=== PATIENT | female | born 1995 | race African-American/Black ===

== ENCOUNTER 2019-07-28 15:58 | Emergency (ER) | payer BC ==
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
--- OUTSIDE RECORDS SUMMARY | 2019-07-28 16:02 | XMS REPORT | Summary of Care ---
:1995 Author Organization [facility] Address [address] [place] [address]- Encounter [facility]_van(FIN) [id number] Date(s): 02/07/19 - 02/07/[address] [phone] Encounter Diagnosis Acute knee pain (Discharge Diagnosis) - 02/07/19 Discharge Disposition: Home or Self Care Attending Physician: Anuja Castro MD Vital Signs Most recent to oldest [Reference Range]: 1 2 Height 165.1 cm (02/07/19 12:06 PM) Temperature Oral [96.4-99.1 DegF] 98.4 DegF (02/07/19 12:06 PM) Blood Pressure [90-140/60-90 mmHg] 123/87 mmHg 122/80 mmHg (02/07/19 2:36 PM) (02/07/19 12:06 PM) Respiratory Rate [14-20 BRMIN] 16 BRMIN 16 BRMIN (02/07/19 2:36 PM) (02/07/19 12:06 PM) Peripheral Pulse Rate [60-100 bpm] 87 bpm 112 bpm (02/07/19 2:36 PM) *HI* (02/07/19 12:06 PM) Weight 92.273 kg (02/07/19 12:06 PM) Body Mass Index 33.85 m2 (02/07/19 12:06 PM) Problem List No data available for this section Allergies, Adverse Reactions, Alerts Substance Reaction Severity Status NKDA Active Medications ibuprofen 800 mg, 1 tab, Route: PO, Drug form: TAB, ONCE, Dosing Weight 92.273, kg, Priority: STAT, Start date: 02/07/19 12:15:00 CDT, Stop date: 02/07/19 12:15:00 CDT Notes: (Same as: Motrin)"Do Not Crush" Take with food. Start Date: 02/07/19 Stop Date: 02/07/19 Status: Completedibuprofen 800 mg oral tablet 800 mg=1 tab, PO, Q8H, PRN Pain, Take with food, X 10 day, # 30 tab, 0 Refill(s) Start Date: 02/07/19 Stop Date: 02/17/19 Status: OrderedTylenol with Codeine #3 oral tablet 1 tab, PO, Q6H, PRN Pain, X 3 day, # 12 tab, 0 Refill(s) Start Date: 02/07/19 Stop Date: 02/10/19 Status: Ordered Results No data available for this section Immunizations No data available for this section Procedures No data available for this section Social History Social History Type Response Smoking Status Never smoker; Exposure to Tobacco Smoke None; Cigarette Smoking Last 365 Days No; Reg Smoking Cessation Counseling No entered on: 02/07/19 Assessment and Plan No data available for this section
--- OUTSIDE RECORDS SUMMARY | 2019-07-28 16:02 | XMS REPORT | CCD ---
:1995 Author Organization [facility] Care Team Providers Name Role Phone Didier Pedersen Consulting Provider Allergies, Adverse Reactions, Alerts Substance Reaction Status NKDA Active Vital Signs Most recent to oldest [Reference 1 2 Range]: Height 162.56 cm (07/26/2013 19:45:00) Systolic Blood Pressure [90-138 mmHg] 113 mmHg 112 mmHg (07/26/2013 22:00:00) (07/26/2013 19:45:00) Diastolic Blood Pressure [45-84 mmHg] 68 mmHg 68 mmHg (07/26/2013 22:00:00) (07/26/2013 19:45:00) Respiratory Rate [14-20 BRMIN] 20 BRMIN 18 BRMIN (07/26/2013 22:00:00) (07/26/2013 19:45:00) Peripheral Pulse Rate [55-90 bpm] 100 bpm 100 bpm *HI* *HI* (07/26/2013 22:00:00) (07/26/2013 19:45:00) Weight 61.364 kg (07/26/2013 19:45:00)
--- OUTSIDE RECORDS SUMMARY | 2019-07-28 16:02 | XMS REPORT ---
:1995 [facility] Address [address] [place] [address] Care Team Providers Name Role Phone Unavailable Unavailable Unavailable Problems This patient has no known problems. Allergies, Adverse Reactions, Alerts This patient has no known allergies or adverse reactions. Medications This patient has no known medications.
--- OUTSIDE RECORDS SUMMARY | 2019-07-28 16:02 | XMS REPORT | Summary of Care ---
:1995 Author Organization [facility] Primary Care [facility] Address [address], [address] [place] [address]- Encounter HQ Flex_van(FIN) [id number] Date(s): 04/21/19 - 04/21/19 [facility] [address] [place] [address]- [phone] Discharge Disposition: Home or Self Care Attending Physician: Gisela Rayo MD Vital Signs Most recent to oldest [Reference Range]: 1 Height 167.64 cm (04/21/19 7:48 PM) Blood Pressure [90-140/60-90 mmHg] 135/92 mmHg (04/21/19 7:48 PM) Peripheral Pulse Rate [60-100 bpm] 118 bpm *HI* (04/21/19 7:48 PM) Weight 95.455 kg (04/21/19 7:48 PM) Body Mass Index 33.97 m2 (04/21/19 7:48 PM) Problem List Condition Effective Dates Status Health Status Informant Simple obesity(Confirmed) Active Allergies, Adverse Reactions, Alerts No Known Allergies Medications aspirin 325 mg tablet 325 mg, Route: PO, ONCE, Dosing Weight 92.273, kg, Start date: 04/21/19 20:00: 00 CDT, Stop date: 04/21/19 20:00:00 CDT Start Date: 04/21/19 Stop Date: 04/21/19 Status: Completednitroglycerin 0.4 mg sublingual tablet 0.4 mg, Route: SL, ONCE, Dosing Weight 92.273, kg, Start date: 04/21/19 20:00: 00 CDT, Stop date: 04/21/19 20:00:00 CDT Start Date: 04/21/19 Stop Date: 04/21/19 Status: Completed Results No data available for this section Immunizations No data available for this section Procedures No data available for this section Social History Social History Type Response Smoking Status Never smoker; Exposure to Tobacco Smoke None; Cigarette Smoking Last 365 Days No; Reg Smoking Cessation Counseling No entered on: 04/21/19 Assessment and Plan No data available for this section
--- OUTSIDE RECORDS SUMMARY | 2019-07-28 16:02 | XMS REPORT ---
:1995 Author Organization e[employer] Care Team Providers Name Role Phone Deven Loco Provider Role Unavailable Allergies, Adverse Reactions, Alerts Substance Reaction Event Type N.K.D.A. Info Not Available Non Drug Allergy Encounters Encounter Location Date [facility] , depo Deven Loco MD, [facility] February 08, 2015 Repeat pap and depo-provera injection Deven Loco MD, [facility] Dec 29, 2015 Problems Problem Type Condition ICD-9 Code Onset Dates Condition Status Assessment Encounter for surveillance of Z30.42 Active injectable contraceptive Assessment Screening for malignant neoplasm Z12.4 Active of cervix Medications Medication Code System Code Instructions Start Date End Date Status Dosage Depo-Provera MEDISPAN [id number] 150 MG/ML Active 1 ml 6-30 Intramuscular Social History Social History Element Qualifiers Date Reported Tobacco Use: . Smoking Status: Never Smoker Dec 29, 2015 Use of recreational / street drugs? . Answer: No Dec 29, 2015 Do you drink alcohol? . Status: No Dec 29, 2015 Vital Signs Date/Time: Dec 29, 2015 Weight 161 lbs Height 65 in Blood Pressure Diastolic 80 mm Hg Blood Pressure Systolic 132 mm Hg Results HCG URINE Summary Purpose eClinicalWorks Submission
--- OUTSIDE RECORDS SUMMARY | 2019-07-28 16:02 | XMS REPORT | Summary of Care ---
:1995 Author Organization [facility] Address [address] [place], [place] [address]- Encounter HQ Josentr_van(FIN) [id number] Date(s): 05/23/17 - 05/23/17 [facility] [address] [place] [address]- [phone] Discharge Diagnosis: Knee pain Discharge Disposition: Home or Self Care Attending Physician: Soy Murphy MD Vital Signs Most recent to oldest [Reference Range]: 1 2 Height 167.64 cm (05/23/17 1:52 PM) Temperature Oral [96.4-99.1 DegF] 97.1 DegF (05/23/17 1:52 PM) Blood Pressure [90-140/60-90 mmHg] 129/69 mmHg 137/72 mmHg (05/23/17 4:00 PM) (05/23/17 1:52 PM) Respiratory Rate [14-20 BRMIN] 16 BRMIN 16 BRMIN (05/23/17 4:00 PM) (05/23/17 1:52 PM) Peripheral Pulse Rate [60-100 bpm] 95 bpm 102 bpm (05/23/17 4:00 PM) *HI* (05/23/17 1:52 PM) Weight 79.574 kg (05/23/17 1:52 PM) Body Mass Index 28.31 m2 (05/23/17 1:52 PM) Problem List No data available for this section Allergies, Adverse Reactions, Alerts Substance Reaction Severity Status NKDA Active Medications No data available for this section Results No data available for this section Immunizations No data available for this section Procedures No data available for this section Social History Social History Type Response Smoking Status Never smoker; Exposure to Tobacco Smoke None; Cigarette Smoking Last 365 Days No; Reg Smoking Cessation Counseling No Assessment and Plan No data available for this section
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
--- OUTSIDE RECORDS SUMMARY | 2019-07-28 16:02 | XMS REPORT | Summary of Care ---
:1995 Author Organization [facility] Address [address] [place], [place] [address]- Encounter HQ Marie(BRENNEN) [id number] Date(s): 09/28/15 - 09/28/15 [facility] [address] [place] [address]- Discharge Diagnosis: Acute UTI Discharge Disposition: Home Attending Physician: Wesley Pacheco MD Vital Signs Most recent to oldest [Reference Range]: 1 Height 167.64 cm (09/28/15 9:26 AM) Temperature Oral [96.4-99.1 DegF] 98.3 DegF (09/28/15 9:26 AM) Blood Pressure [90-140/60-90 mmHg] 116/85 mmHg (09/28/15 9:26 AM) Respiratory Rate [14-20 BRMIN] 18 BRMIN (09/28/15 9:26 AM) Peripheral Pulse Rate [60-100 bpm] 78 bpm (09/28/15 9:26 AM) Weight 71.42 kg (09/28/15 9:26 AM) Body Mass Index 25.41 m2 (09/28/15 9:26 AM) Problem List No data available for this section Allergies, Adverse Reactions, Alerts Substance Reaction Severity Status NKDA Active Medications Cipro 500 mg oral tablet 500 mg=1 tab, PO, Q12H, X 7 day, # 14 tab, 0 Refill(s) Start Date: 09/28/15 Stop Date: 10/05/15 Status: OrderedketOROLAC 30 mg, Route: IVP, Drug form: INJ, ONCE, Dosing Weight 71.42, kg, Priority: STAT , Start date: 09/28/15 10:51:00, Stop date: 09/28/15 10:51:00 Start Date: 09/28/15 Stop Date: 09/28/15 Status: Completedmorphine Sulfate 2 mg, 1 mL, Route: IVP, Drug form: INJ, ONCE, Dosing Weight 71.42, kg, Priority : STAT, Start date: 09/28/15 10:20:00, Stop date: 09/28/15 10:20:00 Notes: (Same as:MORPhine Sulfate) Start Date: 09/28/15 Stop Date: 09/28/15 Status: CompletedRocephin 1 gm, Route: IVPB, Drug form: PDR/INJ, ONCE, Dosing Weight 71.42, kg, Priority: STAT, Start date: 09/28/15 10:50:00, Stop date: 09/28/15 10:50:00 Start Date: 09/28/15 Stop Date: 09/28/15 Status: CompletedZofran 4 mg, 2 mL, Route: IVP, Drug form: INJ, ONCE, Dosing Weight 71.42, kg, Priority : STAT, Start date: 09/28/15 10:20:00, Stop date: 09/28/15 10:20:00 Notes: (Same as: Zofran) MEDICATION WASTE Product Size: 4 mgProduct Wasted: ___ mg Start Date: 09/28/15 Stop Date: 09/28/15 Status: CompletedZofran ODT 4 mg oral tablet, disintegrating 4 mg=1 tab, PO, TID, Dissolve tab under tongue, X 2 day, # 6 tab, 0 Refill(s) Start Date: 09/28/15 Stop Date: 09/30/15 Status: Completed Results ELECTROLYTES Most recent to oldest [Reference Range]: 1 Sodium Lvl [135-145 mEq/L] 141 mEq/L (09/28/15 9:51 AM) Potassium Lvl [3.5-5.1 mEq/L] 4.0 mEq/L (09/28/15 9:51 AM) Chloride Lvl [95-109 mEq/L] 109 mEq/L (09/28/15 9:51 AM) CO2 [24-32 mEq/L] 26 mEq/L (09/28/15 9:51 AM) AGAP [10.0-20.0 mEq/L] 10.0 mEq/L (09/28/15 9:51 AM) CHEM PANEL Most recent to oldest [Reference Range]: 1 Creatinine Lvl [0.50-1.40 mg/dL] 0.78 mg/dL (09/28/15 9:51 AM) eGFR 128 mL/min/1.73m2 1 *NA* (09/28/15 9:51 AM) BUN [7-22 mg/dL] 8 mg/dL (09/28/15 9:51 AM) B/C Ratio [6-25] 10 (09/28/15 9:51 AM) Glucose Lvl [70-99 mg/dL] 108 mg/dL *HI* (09/28/15 9:51 AM) Total Protein [6.4-8.4 g/dL] 7.6 g/dL (09/28/15 9:51 AM) Albumin Lvl [3.5-5.0 g/dL] 3.5 g/dL (09/28/15 9:51 AM) Globulin [2.0-4.0 g/dL] 4.1 g/dL *HI* (09/28/15 9:51 AM) A/G Ratio [0.7-1.6] 0.9 (09/28/15 9:51 AM) Calcium Lvl [8.5-10.5 mg/dL] 9.3 mg/dL (09/28/15 9:51 AM) ALT [0-65 unit/L] 18 unit/L (09/28/15 9:51 AM) AST [0-37 unit/L] 13 unit/L (09/28/15 9:51 AM) Alk Phos [39-136 unit/L] 95 unit/L (09/28/15 9:51 AM) Bili Total [0.2-1.3 mg/dL] 0.9 mg/dL (09/28/15 9:51 AM) Lipase Lvl [73-393 unit/L] 95 unit/L (09/28/15 9:51 AM) 1Result Comment: The eGFR is calculated using the CKD-EPI formula. In most young , healthy individualsthe eGFR will be >90 mL/min/1.73m2. The eGFR declines with age. An eGFR of 60-89 may be normal in some populations, particularly the elderly, for whom the CKD-EPI formula has not been extensively validated. Use of the eGFR is not recommended in the following populations: Individuals with unstable creatinine concentrations, including patients and those with serious co-morbid conditions. Patients with extremes in muscle mass or diet. The data above are obtained from the National Kidney Disease Education Program ( NKDEP) which additionally recommends that when the eGFR is used in patients with extremes of body mass index for purposesof drug dosing, the eGFR should be multiplied by the estimated BMI.ENDOCRINOLOGY Most recent to oldest [Reference Range]: 1 S Preg [Negative] Negative *NA* (09/28/15 9:51 AM) URINE AND STOOL Most recent to oldest [Reference Range]: 1 UA Turbidity [Clear] Cloudy *ABN* (09/28/15 9:51 AM) UA Color [Yellow] Yellow *NA* (09/28/15 9:51 AM) UA pH [5.0-8.0] 6.0 (09/28/15 9:51 AM) UA Spec Grav [<=1.030] 1.020 (09/28/15 9:51 AM) UA Glucose [Negative] Negative (09/28/15 9:51 AM) UA Blood [Negative] Large *ABN* (09/28/15 9:51 AM) UA Ketones [Negative] Negative *NA* (09/28/15 9:51 AM) UA Protein [Negative mg/dL] 30 mg/dL *ABN* (09/28/15 9:51 AM) UA Urobilinogen [0.1-1.0 EU/dL] 0.2 EU/dL (09/28/15 9:51 AM) UA Bili [Negative] Negative *NA* (09/28/15 9:51 AM) UA Leuk Est [Negative] Moderate *ABN* (09/28/15 9:51 AM) UA Nitrite [Negative] Negative (09/28/15 9:51 AM) UA WBC [None Seen /HPF] 51-100 /HPF *ABN* (09/28/15 9:51 AM) UA RBC [0-2 /HPF] 51-100 /HPF *ABN* (09/28/15 9:51 AM) UA Bacteria [None Seen /HPF] Many /HPF (09/28/15 9:51 AM) UA Sq Epi [Few /LPF] Moderate /LPF *ABN* (09/28/15 9:51 AM) HEMATOLOGY Most recent to oldest [Reference Range]: 1 WBC [3.7-10.4 K/CMM] 7.8 K/CMM (09/28/15 9:51 AM) RBC [4.20-5.40 M/CMM] 4.58 M/CMM (09/28/15 9:51 AM) Hgb [12.0-16.0 g/dL] 12.7 g/dL (09/28/15 9:51 AM) Hct [36.0-48.0 %] 39.1 % (09/28/15 9:51 AM) MCV [80.0-98.0 fL] 85.4 fL (09/28/15 9:51 AM) MCH [27.0-31.0 pg] 27.7 pg (09/28/15 9:51 AM) MCHC [32.0-36.0 g/dL] 32.4 g/dL (09/28/15 9:51 AM) RDW [11.5-14.5 %] 12.0 % (09/28/15 9:51 AM) Platelet [133-450 K/CMM] 242 K/CMM (09/28/15 9:51 AM) MPV [7.4-10.4 fL] 7.1 fL *LOW* (09/28/15 9:51 AM) Segs [45.0-75.0 %] 64.9 % (09/28/15 9:51 AM) Lymphocytes [20.0-40.0 %] 23.3 % (09/28/15 9:51 AM) Monocytes [2.0-12.0 %] 8.7 % (09/28/15 9:51 AM) Eosinophils [0.0-4.0 %] 2.6 % (09/28/15 9:51 AM) Basophils [0.0-1.0 %] 0.5 % (09/28/15 9:51 AM) Segs-Bands # [1.5-8.1 K/CMM] 5.1 K/CMM (09/28/15 9:51 AM) Lymphocytes # [1.0-5.5 K/CMM] 1.8 K/CMM (09/28/15 9:51 AM) Monocytes # [0.0-0.8 K/CMM] 0.7 K/CMM (09/28/15 9:51 AM) Eosinophils # [0.0-0.5 K/CMM] 0.2 K/CMM (09/28/15 9:51 AM) Immunizations No data available for this section Procedures No data available for this section Social History Social History Type Response Smoking Status Never smoker; Lives with someone who smokes; Cigarette Smoking Last 365 Days Yes; Reg Smoking Cessation Counseling No Assessment and Plan No data available for this section
--- OUTSIDE RECORDS SUMMARY | 2019-07-28 16:02 | XMS REPORT | Summary of Care ---
:1995 Author Encounter KHADAR Salazar(BRENNEN) [id number] Date(s): 03/27/14 - 03/28/14 [facility] [address] Discharge Diagnosis: Strep throat Discharge Disposition: Home Physician Attending: Raul Rendon MD Reason for Visit TONCILES SWOLLEN Vital Signs Most recent to oldest [Reference Range]: 1 2 Temperature Oral [96.8-99.7 DegF] 99.7 DegF 100.5 DegF *HI* *HI* (03/28/14 3:42 AM) (03/27/14 11:35 PM) Systolic Blood Pressure [90-138 mmHg] 108 mmHg 128 mmHg (03/28/14 3:42 AM) (03/27/14 11:35 PM) Diastolic Blood Pressure [45-84 mmHg] 57 mmHg 80 mmHg (03/28/14 3:42 AM) (03/27/14 11:35 PM) Respiratory Rate [14-20 BRMIN] 20 BRMIN 20 BRMIN (03/28/14 3:42 AM) (03/27/14 11:35 PM) Peripheral Pulse Rate [55-90 bpm] 76 bpm 100 bpm (03/28/14 3:42 AM) *HI* (03/27/14 11:35 PM) Weight 63.636 kg (03/27/14 11:35 PM) Problem List No data available for this section Allergies, Adverse Reactions, Alerts Substance Reaction Severity Status NKDA Active Medications dexamethasone 8 mg, 2 tab, Route: PO, Drug form: TAB, ONCE, Dosing Weight 63.636, kg, Priority : STAT, Start date: 03/28/14 2:39:00, Stop date: 03/28/14 2:39:00 Notes: Give with food.(Same As: Decadron) Start Date: 03/28/14 Stop Date: 03/28/14 Status: Completedibuprofen 600 mg, 1 tab, Route: PO, Drug form: TAB, ONCE, Dosing Weight 63.636, kg, Priority: STAT, Start date: 03/28/14 2:38:00, Stop date: 03/28/14 2:38:00 Notes: (Same as: Motrin)"Do Not Crush" Take with food. Start Date: 03/28/14 Stop Date: 03/28/14 Status: Completedpenicillin V potassium 500 mg oral tablet 500 mg=1 tab, PO, Q6H, # 40 tab, 0 Refill(s) Start Date: 03/28/14 Stop Date: 04/07/14 Status: Ordered Results RAPID Most recent to oldest [Reference Range]: 1 Grp A Strep Scr [Negative] Negative (03/27/14 11:37 PM) Medications Administered During Your Visit No data available for this section Immunizations No data available for this section Social History Social History Type Response
[2019-07-28 17:06] LABS: Urine Blood NEGATIVE (NEG); Urine Glucose NEGATIVE (NEG); Urine Protein NEGATIVE (NEG); Urine Specific Gravity >1.030 (1.005-1.030)
--- NOTE | 2019-07-28 17:22 | ER ---
Nurse's Notes [facility] Name: Yuly Rivera Age: 23 yrs Sex: Female : 1995 Arrival Date: 07/28/2019 Time: 15:59 Bed 16 Private MD: Diagnosis: state, incidental Presentation: 07/28 16:22 Presenting complaint: N/V, headache, body aches, chills, x 2 days. Transition of care: hb patient was not received from another setting of care. Onset of symptoms was July 27, 2019. Risk Assessment: Do you want to hurt yourself or someone else? Patient reports no desire to harm self or others. Initial Sepsis Screen: Does the patient meet any 2 criteria? No. Patient's initial sepsis screen is negative. Does the patient have a suspected source of infection? No. Patient's initial sepsis screen is negative. Care prior to arrival: None. 16:22 Method Of Arrival: Ambulatory 16:22 Acuity: ZAIDA 4 hb Historical: - Allergies: 16:24 No Known Allergies; hb - Home Meds: 16:24 None [Active]; hb - PMHx: 16:24 None; hb - PSHx: 16:24 None; hb - Immunization history:: Adult Immunizations up to date. - Social history:: Smoking status: Patient/guardian denies using tobacco. - Ebola Screening: : No symptoms or risks identified at this time. Screenin:00 Abuse screen: Denies threats or abuse. Denies injuries from another. Nutritional ph screening: No deficits noted. Tuberculosis screening: No symptoms or risk factors identified. Fall Risk None identified. Assessment: 17:00 General: Appears in no apparent distress. comfortable, well groomed, Behavior is calm, ph cooperative, appropriate for age. Pain: Complains of pain in head. Neuro: Level of Consciousness is awake, alert, obeys commands, Oriented to person, place, time, situation, Reports headache Denies weakness dizziness. Cardiovascular: Capillary refill < 3 seconds in bilateral fingers Patient's skin is warm and dry. Respiratory: Airway is patent Respiratory effort is even, unlabored. GI: Abdomen is round non-distended, Reports nausea, vomiting, Patient currently denies abdominal pain, diarrhea. Derm: Skin is intact, Skin is pink, warm \T\ dry. Musculoskeletal: Circulation, motion, and sensation intact. Range of motion: intact in all extremities. 18:00 Reassessment: Pt not in room for d/c, checked in restrooms as well, pt left before ph signing d/c papers, no prescriptions written. Vital Signs: 16:24 Pulse 108; Resp 16; Temp 98.4; Pulse Ox 100% on R/A; Weight 93.44 kg; Height 5 ft. 7 hb in. (170.18 cm); Pain 2/10; 16:24 Body Mass Index 32.26 (93.44 kg, 170.18 cm) hb ED Course: 15:59 Patient arrived in ED. mr 16:21 [facility]. kb 16:21 Tenzin Chua MD is Attending Physician. kb 16:24 Triage completed. hb 16:25 Arm band placed on. hb 16:28 Candace Jarvis, RN is Primary Nurse. ph 17:00 Patient has correct armband on for positive identification. Bed in low position. Call ph light in reach. Side rails up X 1. Pulse ox on. NIBP on. 18:00 No provider procedures requiring assistance completed. Patient did not have IV access ph during this emergency room visit. Administered Medications: No medications were administered Outcome: 17:20 Discharge ordered by . kb 18:04 Patient left the ED. ph 18:04 Discharged to home ambulatory. ph 18:04 Condition: good Signatures: Essie Jha FNP-C FNP-Ckb Livia Brand mr Candace Jarvis, RN RN ph Tiara Kennedy, GEORGINA RN
--- NOTE | 2019-07-28 17:23 | EDPHYS ---
Physician Documentation [facility] Name: Yuly Rivera Age: 23 yrs Sex: Female : 1995 Arrival Date: 07/28/2019 Time: 15:59 Bed 16 Private MD: ED Physician Tenzin Chua HPI: 07/28 16:38 This 23 yrs old Black Female presents to ER via Ambulatory with complaints of Vomiting. kb 16:38 The patient presents to the emergency department with nausea, vomiting. Onset: The kb symptoms/episode began/occurred 2 day(s) ago. Possible causes: unknown. The symptoms are aggravated by nothing. The symptoms are alleviated by nothing. Associated signs and symptoms: Pertinent positives: nausea, vomiting, chills, body aches. Severity of symptoms: At their worst the symptoms were mild moderate in the emergency department the symptoms are unchanged. The patient has not experienced similar symptoms in the past. The patient has not recently seen a physician. Pt reports chills, body aches, headache, nausea and vomiting for 2 days. . Historical: - Allergies: 16:24 No Known Allergies; hb - Home Meds: 16:24 None [Active]; hb - PMHx: 16:24 None; hb - PSHx: 16:24 None; hb - Immunization history:: Adult Immunizations up to date. - Social history:: Smoking status: Patient/guardian denies using tobacco. - Ebola Screening: : No symptoms or risks identified at this time. ROS: 16:38 ENT: Negative for injury, pain, and discharge, Neck: Negative for injury, pain, and kb swelling, Cardiovascular: Negative for chest pain, palpitations, and edema, Respiratory: Negative for shortness of breath, cough, wheezing, and pleuritic chest pain, Back: Negative for injury and pain, : Negative for injury, bleeding, discharge, and swelling, MS/Extremity: Negative for injury and deformity, Skin: Negative for injury, rash, and discoloration, Neuro: Negative for headache, weakness, numbness, tingling, and seizure. 16:38 Constitutional: Positive for body aches, chills, fatigue, fever, malaise, Negative for poor PO intake, weight loss. 16:38 Abdomen/GI: Positive for nausea and vomiting. Exam: 16:37 Constitutional: This is a well developed, well nourished patient who is awake, alert, kb and in no acute distress. Head/Face: Normocephalic, atraumatic. Neck: Trachea midline, no thyromegaly or masses palpated, and no cervical lymphadenopathy. Supple, full range of motion without nuchal rigidity, or vertebral point tenderness. No Meningismus. Chest/axilla: Normal chest wall appearance and motion. Nontender with no deformity. No lesions are appreciated. Cardiovascular: Regular rate and rhythm with a normal S1 and S2. No gallops, murmurs, or rubs. Normal PMI, no JVD. No pulse deficits. Respiratory: Lungs have equal breath sounds bilaterally, clear to auscultation and percussion. No rales, rhonchi or wheezes noted. No increased work of breathing, no retractions or nasal flaring. Abdomen/GI: Soft, non-tender, with normal bowel sounds. No distension or tympany. No guarding or rebound. No evidence of tenderness throughout. Skin: Warm, dry with normal turgor. Normal color with no rashes, no lesions, and no evidence of cellulitis. MS/ Extremity: Pulses equal, no cyanosis. Neurovascular intact. Full, normal range of motion. Neuro: Awake and alert, GCS 15, oriented to person, place, time, and situation. Cranial nerves II-XII grossly intact. Motor strength 5/5 in all extremities. Sensory grossly intact. Cerebellar exam normal. Normal gait. 16:37 ENT: External ear(s): are unremarkable, Ear canal(s): are normal, TM's: are normal, Nose: is normal, Mouth: is normal, Posterior pharynx: Airway: normal, Tonsils: bilaterally enlarged, with erythema, Uvula: normal, midline, swelling, that is moderate, erythema, that is mild. Vital Signs: 16:24 Pulse 108; Resp 16; Temp 98.4; Pulse Ox 100% on R/A; Weight 93.44 kg; Height 5 ft. 7 hb in. (170.18 cm); Pain 2/10; 16:24 Body Mass Index 32.26 (93.44 kg, 170.18 cm) hb MDM: 16:25 Patient medically screened. kb 16:37 Data reviewed: vital signs, nurses notes. Data interpreted: Pulse oximetry: on room air kb is 100 %. Interpretation: normal. 16:51 ED course: Pt tolerating PO intake at this time without medication. Educated on kb positive test. LMP 06/23/19. Pt reports she is not on control. 17:20 Counseling: I had a detailed discussion with the patient and/or guardian regarding: the kb historical points, exam findings, and any diagnostic results supporting the discharge/admit diagnosis, lab results, the need for outpatient follow up, a family practitioner, to return to the emergency department if symptoms worsen or persist or if there are any questions or concerns that arise at home. 07/28 16:28 Order name: Flu; Complete Time: 17:16 kb 07/28 16:28 Order name: Strep; Complete Time: 17:04 kb 07/28 17:04 Order name: Urine Dipstick--Ancillary (enter results) bd 07/28 17:04 Order name: Urine --Ancillary (enter results) bd 07/28 17:07 Order name: Urine --Ancillary; Complete Time: 17:07 EDWY 07/28 17:07 Order name: Urine Dipstick-Ancillary; Complete Time: 17:07 EDWY 07/28 17:13 Order name: Throat Culture EDWY Administered Medications: No medications were administered Disposition: 07/29 07:04 Co-signature as Attending Physician, Tenzin Chua MD I agree with the assessment and kdr plan of care. Disposition: 07/28/19 17:20 Discharged to Home. Impression: state, incidental. - Condition is Stable. - Discharge Instructions: Morning Sickness, [id number], First Trimester of , [id number]. - Medication Reconciliation Form, Thank You Letter, Antibiotic Education, Prescription Opioid Use form. - Follow up: Emergency Department; When: As needed; Reason: Worsening of condition. Follow up: Private Physician; When: 2 - 3 days; Reason: Recheck today's complaints, Continuance of care, Re-evaluation by your physician. Signatures: Dispatcher [employer] EDWY Essie Jha, WELD TECHNICIAN-C SYBIL-Tenzin Jeter MD MD [facility] Candace Jarvis RN RN Tiara Kennedy RN RN Corrections: (The following items were deleted from the chart) 07/28 18:04 17:20 07/28/2019 17:20 Discharged to Home. Impression: state, incidental. ph Condition is Stable. Discharge Instructions: Morning Sickness, [id number], First Trimester of , Yees-vs-Rnlr. Forms are Medication Reconciliation Form, Thank You Letter, Antibiotic Education, Prescription Opioid Use. Follow up: Emergency Department; When: As needed; Reason: Worsening of condition. Follow up: Private Physician; When: 2 - 3 days; Reason: Recheck today's complaints, Continuance of care, Re-evaluation by your physician. kb
[2019-07-28 18:29] VITALS: TEMP 98.4; O2SAT 100
== END 2019-07-28 18:04 | disposition home or self-care (01) ==
LOC: ER 15:58
DX: Z33.1 Pregnant state, incidental (principal)
CPT/HCPCS: 81003; 81025; 87070; 87081; 87804; 99282

== ENCOUNTER 2019-11-19 13:32 | Emergency (ER) | payer BC ==
--- OUTSIDE RECORDS SUMMARY | 2019-11-19 13:35 | XMS REPORT ---
:1995 [facility] [address] [place] [address] Care Team Providers Name Role Phone Unavailable Unavailable Unavailable Problems This patient has no known problems. Allergies, Adverse Reactions, Alerts This patient has no known allergies or adverse reactions. Medications This patient has no known medications.
--- NOTE | 2019-11-19 14:30 | ER ---
Nurse's Notes [facility] Name: Yuly Rivera Age: 24 yrs Sex: Female : 1995 Arrival Date: 11/19/2019 Time: 13:37 Bed 12 Private MD: Diagnosis: Sprain of foot Presentation: 11/19 13:50 Presenting complaint: Patient states: "I twisted my ankle coming down the stairs aa5 yesterday". pt denies fall. Pt c/o pain to left ankle. Reports being 21 weeks . Reports normal movement, denies vaginal bleeding. 13:50 Transition of care: patient was not received from another setting of care. Onset of aa5 symptoms was November 2019. Risk Assessment: Do you want to hurt yourself or someone else? Patient reports no desire to harm self or others. Initial Sepsis Screen: Does the patient meet any 2 criteria? No. Patient's initial sepsis screen is negative. Does the patient have a suspected source of infection? No. Patient's initial sepsis screen is negative. Care prior to arrival: None. 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 - Social history:: Smoking status: Patient/guardian denies using tobacco. - Ebola Screening: : No symptoms or risks identified at this time. Screenin:00 Abuse screen: Denies threats or abuse. Nutritional screening: No deficits noted. aa5 Tuberculosis screening: No symptoms or risk factors identified. Fall Risk None identified. Assessment: 13:50 General: Appears uncomfortable, Behavior is calm, cooperative. Pain: Complains of pain aa5 in dorsum of left foot Pain currently is 5 out of 10 on a pain scale. Aggravated by weight bearing. Neuro: Level of Consciousness is awake, alert, obeys commands, Oriented to person, place, time, situation. Cardiovascular: Patient's skin is warm and dry. Respiratory: Airway is patent Respiratory effort is even, unlabored, Respiratory pattern is regular, symmetrical. GI: No signs and/or symptoms were reported involving the gastrointestinal system. : No signs and/or symptoms were reported regarding the genitourinary system. EENT: No signs and/or symptoms were reported regarding the EENT system. Derm: Skin is dry, Skin is normal, Skin temperature is warm. Musculoskeletal: Range of motion: intact in all extremities. Vital Signs: 14:01 BP 113 / 69; Pulse 83; Resp 18 S; Temp 98.0(TE); Pulse Ox 100% on R/A; Weight 100.7 kg aa5 (R); Height 5 ft. 6 in. (167.64 cm) (R); Pain 6/10; 14:01 Body Mass Index 35.83 (100.70 kg, 167.64 cm) aa5 ED Course: 13:37 Patient arrived in ED. ag5 13:50 Arm band placed on Patient placed in an exam room. aa5 13:50 Patient has correct armband on for positive identification. aa5 13:59 Ina Modi, GEORGINA is Primary Nurse. aa5 14:00 Triage completed. aa5 14:03 Abilio Cruz PA is PHCP. cp 14:03 Abilio Haile MD is Attending Physician. cp 14:04 PHCP role handed off by Abilio Cruz PA jr8 14:04 Alfredo May PA is PHCP. jr8 14:09 PHCP role handed off by Alfredo May PA cp 14:09 Abilio Cruz PA is PHCP. cp 14:13 PHCP role handed off by Abilio Cruz PA jr8 14:13 Alfredo May PA is PHCP. jr8 14:24 XRAY Foot LEFT 3 View In Process Unspecified. EDMS 14:29 Ritesh Stauffer MD is Referral Physician. jr8 15:18 No provider procedures requiring assistance completed. Patient did not have IV access ss during this emergency room visit. Administered Medications: 14:10 Drug: Tylenol 1000 mg Route: PO; aa5 Outcome: 14:30 Discharge ordered by . jr8 15:18 Discharged to home ambulatory. ss 15:18 Condition: good 15:18 Discharge instructions given to patient, Instructed on discharge instructions, follow up and referral plans. Demonstrated understanding of instructions, follow-up care. 15:19 Patient left the ED. ss Signatures: Dispatcher [employer] EDMS Modi, Ina, RN RN aa5 Nohemi Whaley RN RN ss Alfredo May PA PA jr8 Abilio Cruz PA PA cp Gaskin, Ajare ag5 Corrections: (The following items were deleted from the chart) 13:59 13:50 Arm band placed on Patient placed in an exam room, on a stretcher, aa5 aa5 16:35 13:50 Derm: Skin is pink, warm \\T\\ dry. aa5 aa5
--- NOTE | 2019-11-19 14:30 | EDPHYS ---
Physician Documentation [facility] Name: Yuly Rivera Age: 24 yrs Sex: Female : 1995 Arrival Date: 11/19/2019 Time: 13:37 Bed 12 Private MD: ED Physician Abilio Haile HPI: 11/19 14:26 This 24 yrs old Black Female presents to ER via Ambulatory with complaints of Foot jr8 Injury - 21 weeks . 14:26 The patient presents with decreased range of motion, pain, swelling, tenderness. The jr8 complaints affect the dorsum of left foot. Context: The problem was sustained outdoors, resulted from a mis-step, the patient can fully bear weight, the patient is not able to ambulate. Onset: The symptoms/episode began/occurred acutely, yesterday. Modifying factors: The symptoms are alleviated by nothing. the symptoms are aggravated by movement, weight bearing. Associated signs and symptoms: The patient has no apparent associated signs or symptoms. Severity of symptoms: At their worst the symptoms were mild, in the emergency department the symptoms are unchanged. The patient has not experienced similar symptoms in the past. The patient has not recently seen a physician. Stated that she felt a pop. Was still having pain today. Wanted to make sure she did not fracture anything . 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 - Social history:: Smoking status: Patient/guardian denies using tobacco. - Ebola Screening: : No symptoms or risks identified at this time. ROS: 14:26 Eyes: Negative for injury, pain, redness, and discharge, ENT: Negative for injury, jr8 pain, and discharge, Neck: Negative for injury, pain, and swelling, Cardiovascular: Negative for chest pain, palpitations, and edema, Respiratory: Negative for shortness of breath, cough, wheezing, and pleuritic chest pain, Abdomen/GI: Negative for abdominal pain, nausea, vomiting, diarrhea, and constipation, Back: Negative for injury and pain, Skin: Negative for injury, rash, and discoloration, Neuro: Negative for headache, weakness, numbness, tingling, and seizure. 14:26 MS/extremity: Positive for pain, swelling, tenderness, of the dorsum of left foot. Exam: 14:26 Eyes: Pupils equal round and reactive to light, extra-ocular motions intact. Lids and jr8 lashes normal. Conjunctiva and sclera are non-icteric and not injected. Cornea within normal limits. Periorbital areas with no swelling, redness, or edema. ENT: Nares patent. No nasal discharge, no septal abnormalities noted. Tympanic membranes are normal and external auditory canals are clear. Oropharynx with no redness, swelling, or masses, exudates, or evidence of obstruction, uvula midline. Mucous membranes moist. Neck: Trachea midline, no thyromegaly or masses palpated, and no cervical lymphadenopathy. Supple, full range of motion without nuchal rigidity, or vertebral point tenderness. No Meningismus. Cardiovascular: Regular rate and rhythm with a normal S1 and S2. No gallops, murmurs, or rubs. Normal PMI, no JVD. No pulse deficits. Respiratory: Lungs have equal breath sounds bilaterally, clear to auscultation and percussion. No rales, rhonchi or wheezes noted. No increased work of breathing, no retractions or nasal flaring. Abdomen/GI: Soft, non-tender, with normal bowel sounds. No distension or tympany. No guarding or rebound. No evidence of tenderness throughout. Back: No spinal tenderness. No costovertebral tenderness. Full range of motion. Skin: Warm, dry with normal turgor. Normal color with no rashes, no lesions, and no evidence of cellulitis. Neuro: Awake and alert, GCS 15, oriented to person, place, time, and situation. Cranial nerves II-XII grossly intact. Motor strength 5/5 in all extremities. Sensory grossly intact. Cerebellar exam normal. Normal gait. 14:26 Musculoskeletal/extremity: Extremities: grossly normal except: noted in the dorsum of left foot: pain, swelling, tenderness, dorsum left foot lateral aspect, ROM: intact in all extremities, full active range of motion, full passive range of motion, limited active range of motion due to pain, limited passive range of motion due to pain, Circulation is intact in all extremities. Sensation intact. Vital Signs: 14:01 BP 113 / 69; Pulse 83; Resp 18 S; Temp 98.0(TE); Pulse Ox 100% on R/A; Weight 100.7 kg aa5 (R); Height 5 ft. 6 in. (167.64 cm) (R); Pain 04/19; 14:01 Body Mass Index 35.83 (100.70 kg, 167.64 cm) aa5 MDM: 14:04 Patient medically screened. jr8 14:28 Data reviewed: vital signs, nurses notes, radiologic studies, plain films. Data jr8 interpreted: Pulse oximetry: on room air is 100 %. Interpretation: normal. Counseling: I had a detailed discussion with the patient and/or guardian regarding: the historical points, exam findings, and any diagnostic results supporting the discharge/admit diagnosis, radiology results, the need for outpatient follow up, a orthopedic surgeon, to return to the emergency department if symptoms worsen or persist or if there are any questions or concerns that arise at home. 11/19 14:07 Order name: XRAY Foot LEFT 3 View; Complete Time: 14:33 jr8 Administered Medications: 14:10 Drug: Tylenol 1000 mg Route: PO; aa5 Disposition: 15:19 Co-signature as Attending Physician, Abilio Haile MD I agree with the assessment and radha plan of care. Disposition: 11/19/19 14:30 Discharged to Home. Impression: Sprain of foot. - Condition is Stable. - Discharge Instructions: Foot Sprain. - Medication Reconciliation Form, Thank You Letter, Antibiotic Education, Prescription Opioid Use form. - Follow up: Ritesh Stauffer MD; When: 1 week; Reason: If symptoms return, Recheck today's complaints, Continuance of care, Re-evaluation by your physician. - Problem is new. - Symptoms have improved. Signatures: Dispatcher [employer] EDSD Abilio Haile MD MD cha Calderon, Audri RN RN aa5 Nohemi Whaley RN RN ss Roszak, Josh, PA PA jr8 Abilio Cruz PA PA cp Corrections: (The following items were deleted from the chart) 15:19 14:30 11/19/2019 14:30 Discharged to Home. Impression: Sprain of foot. Condition is ss Stable. Forms are Medication Reconciliation Form, Thank You Letter, Antibiotic Education, Prescription Opioid Use. Follow up: Ritesh Stauffer; When: 1 week; Reason: If symptoms return, Recheck today's complaints, Continuance of care, Re-evaluation by your physician. Problem is new. Symptoms have improved. jr8
--- NOTE | 2019-11-19 14:31 | RAD REPORT ---
EXAM DESCRIPTION: RAD - Foot Left 3 View - 11/19/2019 2:24 pm CLINICAL HISTORY: Left foot pain following trauma COMPARISON: None. FINDINGS: No fracture, dislocation or periosteal reaction. No acute or destructive bony process. Soft tissue swelling is present in the mid and distal foot. No air or foreign body in the soft tissue s. IMPRESSION: Soft tissue swelling without acute bone or joint finding.
[2019-11-19] MEDS ORDERED: ACETAMINOPHEN 500 MG TAB ONE (14:39)
[2019-11-19 17:04] VITALS: BP 113/69; TEMP 98; O2SAT 100
== END 2019-11-19 15:19 | disposition home or self-care (01) ==
LOC: ER 13:32
DX: O26.892 Other specified pregnancy related conditions, second trimester (principal); S93.602A Unspecified sprain of left foot, initial encounter; X50.1XXA Overexertion from prolonged static or awkward postures, initial encounter; Y93.89 Activity, other specified; Y92.9 Unspecified place or not applicable
CPT/HCPCS: 99283

== ENCOUNTER 2020-07-20 23:12 | Emergency (ER) | payer OTHER, BC ==
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
--- OUTSIDE RECORDS SUMMARY | 2020-07-20 23:16 | XMS REPORT | Summary of Care ---
:1995 Author Organization [facility] Address [address] [place] [id number] Care Team Providers Name Role Phone Pcp, Patient Does Not Have A Primary Care Provider +[id number] [id number] Reason for Visit Reason Comments Results Covid 19 Encounter Details Date Type Department Care Team Description 05/03/2020 Telephone ACCESS CENTER Anushka Crockett RN Results (Covid 19) [address] [place] [id number] Allergies No Known Allergiesdocumented as of this encounter (statuses as of 05/03/2020) Medications Medication Sig Dispensed Refills Start Date End Date Status LOESTRIN FE Take 1 tablet 3 Package 4 01/26/2019 Act benja (MICROGESTIN FE 11/29) 1 by mouth daily. mg-20 mcg (21)/75 mg (7) tabletIndications: Oral contraception initial prescription maalox:diphenhydrAMINE: Take 10 mL by 50 mL 0 05/02/2020 0 05/07/2020 Active lidocaine 2 % viscous mouth as needed 1:1:1Indications: Sore (Swich and throat spit, 1:1:1) for up to 5 days. documented as of this encounter (statuses as of 05/03/2020) Active Problems Problem Noted Date Obesity (BMI 30-39.9) 03/11/2019 Chlamydia trachomatis infection of lower genitourinary sites 01/26/2019 Overview: 02/12/19 - s/p Azithromycin 03/11/19 - GCC negative Oral contraception initial prescription 01/26/2019 Overview: February 2019 - Loestrin started. BMI 30.0-30.9,adult 02/12/2018 Female infertility 02/12/2018 documented as of this encounter (statuses as of 05/03/2020) Resolved Problems Problem Noted Date Resolved Date Screening for STD (sexually transmitted disease) 02/12/2018 03/11/2019 Well woman exam with routine gynecological exam 02/12/2018 03/11/2019 documented as of this encounter (statuses as of 05/03/2020) Social History Tobacco Use Types Packs/Day Years Used Date Never Smoker Smokeless Tobacco: Never Used Alcohol Use Drinks/Week oz/Week Comments Yes occasional Sex Assigned at Date Recorded Not on file Job Start Date Occupation Industry Not on file Not on file Not on file Travel History Travel Start Travel End No recent travel history available. COVID-19 Exposure Response Date Recorded In the last month, have you been in contact with No / Unsure 05/02/2020 10:02 AM CDT someone who was confirmed or suspected to have Coronavirus / COVID-19? documented as of this encounter Last Filed Vital Signs Not on filedocumented in this encounter Plan of Treatment Health Maintenance Due Date Last Done Comments VARICELLA VACCINES (1 of 2 - 1997 2-dose childhood series) MENINGOCOCCAL B VACCINES (1 of 2006 2 - Risk Bexsero 2-dose series) DTaP,Tdap,and Td Vaccines (1 - 2007 Tdap) HPV VACCINES (1 - Female 2007 2-dose series) Depression Screening 2008 CHLAMYDIA SCREENING 03/11/2020 03/11/2019, 01/26/2019, 02/12/2018 PAP SMEAR 02/12/2021 02/12/2018 INFLUENZA VACCINE Completed 08/26/2019 PNEUMOCOCCAL 0-64 YEARS Aged Out No longe r eligible based COMBINED SERIES on patient's age to complete this to pic documented as of this encounter Results Not on filedocumented in this encounter Insurance Payer Benefit Plan Subscriber ID Effective Dates Phone Address Type / Group [facility] [employer] [id number] 2017-Yuliya [phone] [address] PPO/POS [place] [employer] t [id number] [place] [address] documented as of this encounter
--- OUTSIDE RECORDS SUMMARY | 2020-07-20 23:16 | XMS REPORT | Summary of Care ---
:1995 Author Organization [facility] - [facility] Address [address] [place] [address] Care Team Providers Name Role Phone Pcp, Patient Does Not Have A Primary Care Provider +1-000-00 0-0000 Reason for Visit Reason Comments Headache x 2days Sore Throat x2days Other loss of taste and smell x3 d ays Encounter Details Date Type Department Care Team Description 05/02/2020 Urgent Care [facility] Family Aleida Hawthorne PA [address] [place] [phone] Sore throat (Primary Dx); Medicine - [place] [id number], Acute Care Clinic Acute nonintractable headache, unspecifi ed headache type [address] [place] [phone] Allergies No Known Allergiesdocumented as of this encounter (statuses as of 05/02/2020) Medications Medication Sig Dispensed Refills Start Date [...] as of this encounter (statuses as of 05/02/2020) Active Problems Problem Noted Date Obesity (BMI 30-39.9) 03/11/2019 Chlamydia trachomatis infection of lower genitourinary sites 01/26/2019 Overview: 02/12/19 - s/p Azithromycin 03/11/19 - GCC negative Oral contraception initial prescription 01/26/2019 Overview: February 2019 - Loestrin started. BMI 30.0-30.9,adult 02/12/2018 Female infertility 02/12/2018 documented as of this encounter (statuses as of 05/02/2020) Resolved Problems Problem Noted Date Resolved Date Screening for STD (sexually transmitted disease) 02/12/2018 03/11/2019 Well woman exam with routine gynecological exam 02/12/2018 03/11/2019 documented as of this encounter (statuses as of 05/02/2020) Social History Tobacco Use Types Packs/Day Years [...] of this encounter Last Filed Vital Signs Vital Sign Reading Time Taken Comments Blood Pressure 107/78 05/02/2020 10:07 AM CDT Pulse 85 05/02/2020 10:07 AM CDT Temperature 37.2 C (98.9 F) 05/02/2020 10:07 AM CDT Respiratory Rate 16 05/02/2020 10:07 AM CDT Oxygen Saturation 99% 05/02/2020 10:07 AM CDT Inhaled Oxygen Concentration - - Weight 98.4 kg (217 lb) 05/02/2020 10:07 AM CDT Height 170.2 cm (5' 7") 05/02/2020 10:07 AM CDT Body Mass Index 33.99 05/02/2020 10:07 AM CDT documented in this encounter Patient Instructions Patient InstructionsBlessing Arce FNP - 05/02/2020 10:00 AM CDT Patient Education Self-Care for Headaches Most headaches aren't serious and can be relieved with self-care. But some headaches may be a sign of another health problem like eye trouble or high blood pressure. To find the best treatment, learn what kind of headaches you get. For tension headaches, self-care will usually help. To treat migraines, ask yourhealthcare providerfor advice. It is also possible to get both tension and migraine headaches. Self-care involves relieving the pain and avoiding headache triggers if you can. Ways to reduce pain and tension Try these steps: Apply a cold compress or ice pack to the pain site. Drink fluids. If nausea makes it hard to drink, try sucking on ice. Rest. Protect yourself from bright light and loud noises. Calm your emotions by imagining a peaceful scene. Massage tight neck, shoulder, and head muscles. To relax muscles, soak in a hot bath or use a hot shower. Use medicines Aspirin or other vbol-vwo-jvsuolp pain medicines, such as ibuprofen and acetaminophen, can relieve headache. Remember: Never give aspirin to anyone 18 years old or younger because of the risk of developing Ra syndrome. Use pain medicines only when needed. Certain prescription medicines, if taken toooften, can lead to rebound headaches. Check with your healthcare provider or pharmacist about your medicines. Track your headaches Keeping a headache diary can help you and yourhealthcare provideridentify what's causing your headaches: Note when each headache happens. Identify your activities and the foods you've eaten6 to 8hours before the headache began. Look for any trends or "triggers." Signs of tension headache Any of the following can be signs: Dull pain or feeling of pressure in a tight band around your head Pain in your neck or shoulders Headache without a definite beginning or end Headache after an activity such as driving or working on a computer Signs of migraine Any of the following can be signs: Throbbing pain on one or both sides of your head Nausea or vomiting Extreme sensitivity to light, sound, and smells Bright spots, flashes, or other visual changes Pain or nausea so severe that you can't continue your daily activities Call yourhealthcare provider If you have any of the following symptoms, contact your healthcare provider: A headache that lingers after a recent injury or bump to the head. A fever with a stiff neck or pain when you bend your head toward your chest. A headache along with slurred speech, changes in your vision, or numbness or weakness in your arms or legs. A headache for longer than3 days. Frequent headaches,especially in the morning. Headaches with seizures Seek immediate medical attention if you have a headache that you would call "the worst headache you have ever had." [employer] last reviewed this educational content on 01/08/201819994374-0696 The [employer], [employer]. [address] [place] [address]. All rights reserved. This information is not intended as a substitute for professional medical care. Always follow your healthcare professional's instructions. Patient Education Self-Care for Sore Throats Sore throats happen for many reasons, such as colds, allergies, cigarette smoke, air pollution, and infections caused by viruses or bacteria. In any case, your throat becomes red and sore. Your goal for self-care is to reduce your discomfort while giving your throat a chance to heal. Moisten and soothe your throat Tips include the following: Try a sip of water first thing after waking up. Keep your throat moist by drinking6 or more glasses of clear liquids every day. Run a cool-air humidifier in your room overnight. Stay away from cigarette smoke. Check the air quality index,if air pollution gives you a sore throat. On high pollution days, tryto limit outdoor time. Suck on throat lozenges, cough drops, hard candy, ice chips, or frozen fruit- juice bars. Use the sugar-free versions if your diet or medical condition requires them. Gargle to ease irritation Gargling every hour or2 can ease irritation. Try gargling with1 of these solutions: 1/4teaspoon of salt in1/2 cup of warm water An kiwn-zvg-iblbdvn anesthetic gargle Use medicine for more relief Nbvf-axp-jhumdha medicine can reduce sore throat symptoms. Ask your pharmacist if you have questionsabout which medicine to use. To prevent possible medicine interactions, let the pharmacist know whatmedicines you take. To decrease symptoms: Ease pain with anesthetic sprays. Aspirin or an aspirin substitute also helps. Remember, never give aspirin to anyone 18 or younger. Don't take aspirin if you are alreadytaking blood thinners. For sore throats caused by allergies, try antihistamines to block the allergic reaction. Unless a sore throat is caused by a bacterial infection, antibiotics wont help you. Prevent future sore throats Prevention tips include: Stop smoking or reduce contact with secondhand smoke. Smoke irritates the tender throat lining. Limit contact with pets and with allergy-causing substances, such as pollen and mold. Wash your hands often when youre around someone with a sore throat or cold. This will keep viruses or bacteria from spreading. Limit outdoor time when air pollution is bad. Dont strain your vocal cords. When to call your healthcare provider Contact your healthcare provider if you have: Fever of 100.4F (38.0C) or higher, or as directed by your healthcare provider White spots on the throat Great Trouble swallowing A skin rash Recent exposure to someone else with strep bacteria Severe hoarseness and swollen glands in the neck or jaw Call 911 Call 911 if any of the following occur: Trouble breathing or catching your breath Drooling and problems swallowing Wheezing Unable to talk Feeling dizzy or faint Feeling of doom [employer] last reviewed this educational content on 07/11/201919997961-1309 The [employer]. [address] [place] [address]. All rights reserved. This information is not intended as a substitute for professional medical care. Always follow your healthcare professional's instructions. documented in this encounter Progress Notes Blessing Arce FNP - 05/02/2020 10:00 AM CDT Cc: Chief Complaint Patient presents with Headache x 2days Sore Throat x2days Other loss of taste and smell x3 days Yuly Rivera is a 24 year old female. Patient is here with sore throat and intermittent SERNA for about 2 days with no other associated symptoms. Sore Throat Location: Generalized Quality: Sore Severity: Mild Onset quality: Gradual Duration: 2 days Timing: Constant Progression: Unchanged Chronicity: New Relieved by: Nothing Worsened by: Nothing Ineffective treatments: None tried Associated symptoms: headaches Associated symptoms: no chest pain, no chills, no cough, no fever and no shortness of breath Headaches: Severity: Mild Onset quality: Gradual Timing: Intermittent Progression: Resolved Chronicity: New Risk factors: no sick contacts Allergies Yuly has No Known Allergies. Medications Outpatient Medications Prior to Visit Medication Sig Dispense Refill LOESTRIN FE (MICROGESTIN FE 11/29) 1 mg-20 mcg (21)/75 mg (7) tablet Take 1 tablet by mouth daily. 3 Package 4 No facility-administered medications prior to visit. Histories Past Medical History: Diagnosis Date Anemia Female infertility 02/12/2018 STD (sexually transmitted disease) 2014 Chlamydia / treated No past surgical history on file. 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 Social Needs Financial resource strain: Not on file Food insecurity: Worry: Not on file Inability: Not on file Transportation needs: Medical: Not on file Non-medical: Not on file Tobacco Use Smoking status: Never Smoker Smokeless tobacco: Never Used Substance and Sexual Activity Alcohol use: Yes Comment: occasional Drug use: No Sexual activity: Yes Partners: Male control/protection: None, Pill Comment: Last coitus 03/06/19 unprotected Lifestyle Physical activity: Days per week: Not on file Minutes per session: Not on file Stress: Not on file Relationships Social connections: Talks on phone: Not on file Gets together: Not on file Attends anglican service: Not on file Active member of club or organization: Not on file Attends meetings of clubs or organizations: Not on file Relationship status: Not on file Intimate partner violence: Fear of current or ex partner: Not on file Emotionally abused: Not on file Physically abused: Not on file Forced sexual activity: Not on file Other Topics Concern Not on file Social History Narrative Denies domestic or physical violence within the home Hinduism Preference: Episcopal Family History Problem Relation Age of Onset No Significant Medical Problems Mother No Significant Medical Problems Father Cancer Maternal Grandmother Bone Arthritis NoFHx Asthma NoFHx defects NoFHx Breast Cancer NoFHx Colon Cancer NoFHx Ovarian Cancer NoFHx Uterine Cancer NoFHx Depression NoFHx Diabetes NoFHx Genetic NoFHx Heart NoFHx High cholesterol NoFHx Hypertension NoFHx Mental retardation NoFHx Neurological NoFHx Osteoporosis NoFHx Psychiatry NoFHx Other - see comments NoFHx Review of Systems Constitutional: Negative. Negative for chills and fever. Respiratory: Negative. Negative for apnea, cough, choking, chest tightness, shortness of breath andwheezing. Cardiovascular: Negative. Negative for chest pain, palpitations and leg swelling. Gastrointestinal: Negative. Skin: Negative. Neurological: Positive for headaches. Endocrine: Endocrine negative Vital Signs BP 107/78 (BP Location: Right arm, Patient Position: Sitting, BP CUFF SIZE: Adult Large) | Pulse 85 | Temp 37.2 C (98.9 F) (Oral) | Resp 16 | Ht 5' 7" (1.702 m) | Wt 217 lb (98.4 kg) | SpO2 99% | BMI 33.99 kg/m Physical Exam Constitutional: She is oriented to person, place, and time. She appears well- developed and well-nourished. HENT: Head: Normocephalic. Right Ear: Hearing, tympanic membrane, external ear and ear canal normal. Left Ear: Hearing, tympanic membrane, external ear and ear canal normal. Nose: Rhinorrhea present. Right sinus exhibits no maxillary sinus tenderness and no frontal sinus tenderness. Left sinus exhibits no maxillary sinus tenderness and no frontal sinus tenderness. Mouth/Throat: Uvula is midline, oropharynx is clear and moist and mucous membranes are normal. No oropharyngeal exudate, posterior oropharyngeal edema or posterior oropharyngeal erythema. No tonsillar exudate. Neck: Normal range of motion. Neck supple. No JVD present. Cardiovascular: Normal rate, regular rhythm, normal heart sounds and intact distal pulses. Exam reveals no gallop and no friction rub. No murmur heard. Pulmonary/Chest: Effort normal and breath sounds normal. No respiratory distress. She has no wheezes. She has no rales. She exhibits no tenderness. Abdominal: Soft. Bowel sounds are normal. She exhibits no distension. There is no tenderness. Lymphadenopathy: Head (right side): No submental, no submandibular, no tonsillar, no preauricular and no posterior auricular adenopathy present. Head (left side): No submental, no submandibular, no tonsillar, no preauricular and no posterior auricular adenopathy present. She has no cervical adenopathy. Neurological: She is alert and oriented to person, place, and time. Skin: Skin is warm and dry. Capillary refill takes less than 2 seconds. No rash noted. No erythema. No pallor. Psychiatric: She has a normal mood and affect. Nursing note and vitals reviewed. Assessment/Plan 1. sore throat and headache: POCT strep done and pending. covid test done. In the meantime, quarantine in place, treat symptoms with OTC meds, Tylenol as needed but no NSAIDs. Stay in quarantine until symptoms subsides, plus 3 days afterwards or until you hear otherwise. Follow up with your PCP as needed, and if with worsening of symptoms, any respiratory distress, go to the ER. Dont smoke, and avoid secondhand smoke. Try lozenges OTC as directed Drink warm liquids to soothe the throat and help thin mucus. Avoid alcohol, spicy foods, and acidic drinks such as orange juice. These can irritate the throat. Gargle with warm saltwater (1 teaspoon of salt to 8 ounces of warm water). Use a humidifier to keep air moist and relieve throat dryness. Try leef-yet-bbattgr pain relievers such as acetaminophen or ibuprofen. Use as directed, and dont exceed the recommended dose. Plan of care, desired health behaviors, goals, and medication discussed with patient. Education resources provided and reviewed with AVS. Patient/guardian/family verbalized understanding & agrees to plan of care. This visit did not involve counseling and coordination that comprised more than 50% of the visit time. If applicable, the [place] ENROLLMENT ELIGIBILITY REPRESENTATIVE database was accessed to review any controlled substance prescription claims data. The [employer] prescription claims data in [employer] was reviewed to assess patient compliance with the medication treatment plan. documented in this encounter Plan of Treatment Name Type Priority Associated Diagnoses Order S loco COVID-19 (PCR MOLECULAR LAB Routine Sore throat Expe cted: 05/02/2020, TESTING) Expires: 2020 Health Maintenance Due Date Last Done Comments VARICELLA VACCINES (1 of 2 - 1997 2-dose childhood series) MENINGOCOCCAL B VACCINES (1 of 2006 2 - Risk Bexsero 2-dose series) DTaP,Tdap,and Td Vaccines (1 - 2007 Tdap) HPV VACCINES (1 - Female 2007 2-dose series) Depression Screening 2008 CHLAMYDIA SCREENING 03/11/2020 03/11/2019, 01/26/2019, 02/12/2018 INFLUENZA VACCINE (Season 07/11/2020 Ended) PAP SMEAR 02/12/2021 02/12/2018 PNEUMOCOCCAL 0-64 YEARS Aged Out No longe r eligible based COMBINED SERIES on patient's age to complete this to pic documented as of this encounter Procedures Procedure Name Priority Date/Time Associated Diagnosis Comme nts POCT GRP A STREP Routine 05/02/2020 10:23 AM Sore throat Resu lts for this (MOLECULAR) CDT procedure are i n the results section. documented in this encounter Results POCT GRP A STREP (MOLECULAR) (05/02/2020 10:23 AM CDT) Pathologist Sig nature POCT GP A STREP neg Negative - Negative Specimen Swab - THROAT documented in this encounter Visit Diagnoses Diagnosis Sore throat - Primary Acute pharyngitis Acute nonintractable headache, unspecifi ed headache type documented in this encounter Insurance Payer Benefit Plan Subscriber ID Effective Dates Phone Address Type / Group [facility] [id number] 2016-Yuliya [phone] [address] PPO/POS [place] [employer] t [id number] [place] [address] documented as of this encounter
--- OUTSIDE RECORDS SUMMARY | 2020-07-20 23:16 | XMS REPORT | Summary of Care ---
:1995 Author Organization [facility] - [facility] Address [address] [place] [address] Care Team Providers Name Role Phone Pcp, Patient Does Not Have A Primary Care Provider +1-000-00 0-0000 Reason for Visit Reason Comments Headache x 2days Sore Throat x2days Other loss of taste and smell x3 d ays Encounter Details Date Type Department Care Team Description 05/02/2020 [facility] Family Aleida Hawthorne PA [address] [place] [phone] Sore throat (Primary Dx); Medicine - [place] [id number], Acute Care Clinic Acute nonintractable headache, unspecifi ed headache type [address] [place] [phone] Allergies No Known Allergiesdocumented as of [...] hot shower. Use medicines Aspirin or other frhz-ziv-uwxkxhw pain medicines, such as ibuprofen and acetaminophen, [...] "the worst headache you have ever had." [employer] last reviewed this educational content on 01/08/201819993592-6521 The [employer], [employer]. [address] [place] [address]. All rights reserved. This information is not [...] salt in1/2 cup of warm water An kgnm-jhb-xnynykk anesthetic gargle Use medicine for more relief Kbdi-flm-lzzxhwi medicine can reduce sore throat symptoms. Ask [...] [employer] last reviewed this educational content on 07/11/201919990250-0466 The [employer]. [address] [place] [address]. All rights reserved. 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 Try fwtg-olo-vzrqzeo pain relievers such as acetaminophen or ibuprofen. [...] the visit time. If applicable, the [place] [employer] database was accessed to review any controlled substance prescription claims data. The [employer] prescription claims data in [employer] was reviewed to assess patient compliance with [...] Effective Dates Phone Address Type / Group [facility] [id number] 2017-Yuliya [phone] [address] PPO/POS [place] [employer] t [id number] [place] [address] documented as of this encounter
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
--- NOTE | 2020-07-21 00:23 | EDPHYS ---
Physician Documentation [facility] Name: Yuly Rivera Age: 24 yrs Sex: Female : 1995 Arrival Date: 07/20/2020 Time: 23:15 Bed 15 Private MD: ED Physician Daniel Carr HPI: 07/20 23:44 This 24 yrs old Black Female presents to ER via Ambulatory with complaints of Wrist jmm Injury. 23:44 The patient or guardian reports injury, pain. Onset: The symptoms/episode jmm began/occurred acutely, just prior to arrival. Modifying factors: The symptoms are alleviated by nothing, the symptoms are aggravated by nothing. This is a 24 year old female with no chronic medical conditions that presents to the ED with complaints of left wrist pain after falling on a treadmill. around 7 pm this evening. Patient denies other injury. 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 - Social history:: Smoking status: Patient denies any tobacco usage or history of. ROS: 23:44 Constitutional: Negative for fever, chills, and weight loss, Cardiovascular: Negative jmm for chest pain, palpitations, and edema, Respiratory: Negative for shortness of breath, cough, wheezing, and pleuritic chest pain. 23:44 MS/extremity: Positive for injury or acute deformity, pain, swelling. 23:44 All other systems are negative. Exam: 23:44 Constitutional: This is a well developed, well nourished patient who is awake, alert, jmm and in no acute distress. Head/Face: atraumatic. Eyes: EOMI, no conjunctival erythema appreciated ENT: Moist Mucus Membranes Neck: Trachea midline, Supple Chest/axilla: Normal chest wall appearance and motion. Cardiovascular: Regular rate and rhythm. No edema appreciated Respiratory: Normal respirations, no respiratory distress appreciated Back: Normal ROM Skin: General appearance color normal 23:44 Musculoskeletal/extremity: swelling noted to the left wrist on the ulner side, full radial pulse, compartments are soft, < 2 sec dist cap refill, NVI. 23:44 Skin: Appearance: Color: normal in color, abrasion noted to the left wrist. 23:44 Neuro: Orientation: is normal, Mentation: is normal, Memory: is normal. 23:44 Psych: Behavior/mood is pleasant, cooperative. Vital Signs: 23:33 Pulse 77; Resp 16; Temp 98.2; Pulse Ox 100% on R/A; Weight 117.93 kg (R); Height 5 ft. sg 10 in. (177.80 cm); Pain 7/10; 23:33 Body Mass Index 37.31 (117.93 kg, 177.80 cm) sg MDM: 23:36 Patient medically screened. [facility] 07/21 00:20 Data reviewed: vital signs, nurses notes. Counseling: I had a detailed discussion with lexis the patient and/or guardian regarding: the historical points, exam findings, and any diagnostic results supporting the discharge/admit diagnosis, radiology results, the need for outpatient follow up, to return to the emergency department if symptoms worsen or persist or if there are any questions or concerns that arise at home. ED course: xray appears normal. will splint. patient is advised to follow up with ortho for reevaluation. patient is otherwise given strict return precautions. patient understood and agrees with the plan of care. 07/20 23:43 Order name: Wrist Left (3 View) XRAY [facility] 07/21 00:18 Order name: [place] Forearm Splint; Complete Time: 02:53 [facility] 07/21 00:18 Order name: Sling; Complete Time: 02:53 [facility] Administered Medications: No medications were administered Disposition: 05:48 Co-signature as Attending Physician, Daniel Carr MD. [email or web address] Disposition: 07/21/20 00:22 Discharged to Home. Impression: Other and unspecified sprain of wrist. - Condition is Stable. - Discharge Instructions: Wrist Sprain. - Medication Reconciliation Form, Thank You Letter, Antibiotic Education, Prescription Opioid Use form. - Follow up: Ritesh Stauffer MD; When: 2 - 3 days; Reason: Recheck today's complaints, Continuance of care, Re-evaluation by your physician. Signatures: Dispatcher [employer] EDMS Ritesh Granados, RN RN Shyam Saenz PA PA jmm Ronnie Lancaster RN RN mg2 Daniel Carr MD MD [email or web address] Corrections: (The following items were deleted from the chart) 01:00 00:22 07/21/2020 00:22 Discharged to Home. Impression: Other and unspecified sprain of mg2 wrist. Condition is Stable. Forms are Medication Reconciliation Form, Thank You Letter, Antibiotic Education, Prescription Opioid Use. Follow up: Rtiesh Stauffer; When: 2 - 3 days; Reason: Recheck today's complaints, Continuance of care, Re-evaluation by your physician. queenie
--- NOTE | 2020-07-21 00:23 | ER ---
Nurse's Notes [facility] Familia Name: Yuly Rivera Age: 24 yrs Sex: Female : 1995 Arrival Date: 07/20/2020 Time: 23:15 Bed 15 Private MD: Diagnosis: Other and unspecified sprain of wrist Presentation: 07/20 23:33 Chief complaint: Patient states: I was using a treadmill when I became unbalanced and sg fell onto my outstretched left arm, now having pain and swelling in the left wrist and left hand, pt jewelry and rings from the affected extremity has been removed at this time. Coronavirus screen: Client denies travel out of the [place] in the last 14 days. At this time, the client does not indicate any symptoms associated with coronavirus-19. Ebola Screen: Patient negative for fever greater than or equal to 101.5 degrees Fahrenheit, and additional compatible Ebola Virus Disease symptoms Patient denies exposure to infectious person. Patient denies travel to an Ebola-affected area in the 21 days before illness onset. No symptoms or risks identified at this time. Initial Sepsis Screen: Does the patient meet any 2 criteria? No. Patient's initial sepsis screen is negative. Does the patient have a suspected source of infection? No. Patient's initial sepsis screen is negative. Risk Assessment: Do you want to hurt yourself or someone else? Patient reports no desire to harm self or others. Onset of symptoms was July 20, 2020. Care prior to arrival: None. Mechanism of Injury: Fall from standing position. Transition of care: patient was not received from another setting of care. 23:33 Method Of Arrival: Ambulatory sg 23:33 Acuity: ZAIDA 4 sg Triage Assessment: 23:47 General: Appears in no apparent distress. uncomfortable, well groomed, Behavior is vc calm, cooperative, appropriate for age. Pain: Complains of pain in left wrist Pain does not radiate. Pain currently is 0 out of 10 on a pain scale. at worst was 8 out of 10 on a pain scale. Quality of pain is described as numb, Pain began 3 hours ago. Is episodic, Alleviated by rest, cold application. Musculoskeletal: Circulation, motion, and sensation intact. Range of motion: limited in left wrist. Injury Description: r/o fracture. 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 - Social history:: Smoking status: Patient denies any tobacco usage or history of. Screenin:46 Abuse screen: Denies threats or abuse. Nutritional screening: No deficits noted. vc Tuberculosis screening: No symptoms or risk factors identified. Fall Risk None identified. Assessment: 23:51 General: Appears in no apparent distress. comfortable, Behavior is calm, cooperative, vc appropriate for age. Pain: Complains of pain in left wrist Pain does not radiate. Pain currently is 0 out of 10 on a pain scale. at worst was 10 out of 10 on a pain scale. Neuro: Level of Consciousness is awake, alert, obeys commands, Oriented to person, place, time, situation, Appropriate for age. Cardiovascular: Capillary refill < 3 seconds Patient's skin is warm and dry. Respiratory: Airway is patent Respiratory effort is even, unlabored, Respiratory pattern is regular, symmetrical. GI: No signs and/or symptoms were reported involving the gastrointestinal system. : No signs and/or symptoms were reported regarding the genitourinary system. Derm:. Musculoskeletal: Swelling present in left wrist. 07/21 00:50 Reassessment: Patient appears in no apparent distress at this time. Patient and/or vc family updated on plan of care and expected duration. Pain level reassessed. Patient states feeling better. Patient states symptoms have improved. Vital Signs: 07/20 23:33 Pulse 77; Resp 16; Temp 98.2; Pulse Ox 100% on R/A; Weight 117.93 kg (R); Height 5 ft. sg 10 in. (177.80 cm); Pain 7/10; 23:33 Body Mass Index 37.31 (117.93 kg, 177.80 cm) ED Course: 23:15 Patient arrived in ED. am2 23:29 Shyam Saenz PA is PHCP. [facility] 23:29 Daniel Carr MD is Attending Physician. [facility] 23:33 Arm band placed on. 23:33 Patient has correct armband on for positive identification. vc 23:33 Pulse ox on. NIBP on. vc 23:35 Triage completed. sg 23:36 Sonali Diaz, RN is Primary Nurse. vc 07/21 00:15 Wrist Left (3 View) XRAY In Process Unspecified. EDMS 00:22 Ritesh Stauffer MD is Referral Physician. [facility] 00:30 No provider procedures requiring assistance completed. IV discontinued. Orthoglass vc splint: Sugar tong splint applied on left arm. Sling applied to left arm. Administered Medications: No medications were administered Outcome: 00:22 Discharge ordered by . jm 01:00 Patient left the ED. mg2 01:00 Discharged to home ambulatory. vc 01:00 Condition: good 01:00 Condition: good 01:00 Discharge instructions given to patient, Instructed on discharge instructions, follow up and referral plans. wound care, Demonstrated understanding of instructions, follow-up care, splint care. Signatures: Dispatcher [employer] EDRitesh Lujan, RN RN Shyam Saenz PA PA [facility] Doreen Shaw [facility] Ronnie Lancaster, GEORGINA ERICKSON [facility] Sonail Diaz, GEORGINA RN
[2020-07-21 03:20] VITALS: TEMP 98.2; O2SAT 100
--- NOTE | 2020-07-21 08:19 | RAD REPORT ---
EXAM DESCRIPTION: RAD - Wrist Left 3 View - 07/21/2020 12:14 am CLINICAL HISTORY: pain, injury Pain COMPARISON: No comparisons FINDINGS: No acute fracture or dislocation seen. Prominent soft tissue swelling is seen along the d orsum of the distal forearm.
== END 2020-07-21 01:00 | disposition home or self-care (01) ==
LOC: ER 23:12
DX: S63.592A Other specified sprain of left wrist, initial encounter (principal); W19.XXXA Unspecified fall, initial encounter; Y93.A1 Activity, exercise machines primarily for cardiorespiratory conditioning; Y92.9 Unspecified place or not applicable
CPT/HCPCS: 99283